=== PATIENT | male | born 1975 | race Caucasian/White ===

== ENCOUNTER 2019-05-26 23:14 | Observation (INO) ==
[2019-05-27] MEDS ORDERED: BENTYL IM ONE (00:06)
[2019-05-27] MEDS ORDERED: ZOFRAN IV ONE (00:06)
[2019-05-27] MEDS ORDERED: TORADOL IV ONE (00:06)
[2019-05-27] MEDS ORDERED: MAXIPIME 1 GM in NS 50 ML IV ONE (00:07)
[2019-05-27 00:48] LABS: BASO# 0.02 X1000 (0.0-0.2); BASO% 0.2 % (0.0-0.8); EOS# 0.03 X1000 (0.0-0.7); EOS% 0.3 % (0.0-10.0); HEMATOCRIT 42.6 % (42.0-52.0); HEMOGLOBIN 14.4 g/dL (14.0-18.0); IMM GRAN# 0.02 X1000 (0.0-0.04); IMM GRAN% 0.2 % (0.0-0.5); LYMPH% 15.2 % (20.5-51.1); MCH 28.8 PG (27-31); MCHC 33.8 g/dL (33-37); MCV 85.2 FL (81-99); MONO# 0.88 X1000 (0.11-0.59); MONO% 7.9 % (1.7-9.3); MPV 10.9 FL (7.4-10.4); NEUT# 8.55 X1000 (1.4-6.5); NEUT% 76.2 % (42.2-75.2); PLT 168 X1000 (130-400); RDW 13.6 % (11.5-14.5)
[2019-05-27 01:07] LABS: ESTIMATED GFR > 60
[2019-05-27 01:09] LABS: AGAP 12; ALB/GLOB RATIO 1.5; ALBUMIN 4.2 g/dL (3.5-5.0); ALKALINE PHOSPHATASE 57 U/L (32-122); AMYLASE 27 U/L (20-200); BUN 9 mg/dL (8-22); CALCIUM 9.2 mg/dL (8.8-10.2); CHLORIDE 100 mmol/L (98-107); COSMO 271; CREATININE 0.8 mg/dL (0.7-1.2); GLUCOSE 101 mg/dL (70-104); GOT 20 U/L (10-34); GPT 38 U/L (10-44); LIPASE 6 U/L (13-60); POTASSIUM 4.1 mmol/L (3.5-5.1); SODIUM 136 mmol/L (136-145); TCO2 24 mmol/L (25-35); TOTAL BILIRUBIN 3.82 mg/dL (0.20-1.00)
[2019-05-27] MEDS ORDERED: ZOFRAN IV PRN (01:39)
[2019-05-27] MEDS ORDERED: MORPHINE IV PRN (01:39)
[2019-05-27] MEDS ORDERED: TORADOL IV PRN (01:39)
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
[2019-05-27] MEDS ORDERED: TYLENOL PR PRN (01:40)
[2019-05-27] MEDS ORDERED: NS 1,000 ML IV ONE (01:40)
[2019-05-27] MEDS: MAXIPIME 1 GM in NS 50 ML IV SCH ×2 (01:49→13:21)
[2019-05-27] MEDS ORDERED: VERSED ONE (06:09)
[2019-05-27] MEDS ORDERED: FENTANYL ONE (06:09)
[2019-05-27] MEDS ORDERED: XYLOCAINE-MPF 2% ONE (06:09)
[2019-05-27] MEDS ORDERED: ZEMURON ONE (06:09)
[2019-05-27] MEDS ORDERED: DIPRIVAN 1% ONE (06:12)
[2019-05-27] MEDS ORDERED: MARCAINE 0.25% PF/EPI 1:200,000 ONE (06:29)
[2019-05-27] MEDS ORDERED: LR 1,000 ML ONE (06:29)
--- NOTE | 2019-05-27 06:30 | HISTORY AND PHYSICAL ---
HISTORY: Mr. Myles Echols is a 44-year-old inmate who for at least 2 days has been experiencing abdominal pain localizing to his right lower quadrant. He was brought to the emergency department during the night, and part of his evaluation was a CT scan of his abdomen and pelvis which suggested acute appendicitis as did his exam. He was admitted under my service for further care. PAST MEDICAL HISTORY: Anxiety and depression. Psychiatric problems: Suicide attempt. PAST SURGICAL HISTORY: Previous surgery of orthopedic surgery on one of his extremities. SOCIAL HISTORY: He is incarcerated and smokes cigarettes. He has a history of substance abuse. REVIEW OF SYSTEMS: He does have elevated total bilirubin, but he does not know of any diagnosis as a cause for this. Otherwise, he states that he is healthy. REVIEW OF SYSTEMS: A 14-point review of systems was performed. FAMILY HISTORY: Family history was reviewed with the patient and was noncontributory. PHYSICAL EXAMINATION: On exam, his temperature is 99.4 degrees, pulse rate 96, blood pressure 99/63, and O2 saturation 100%. GENERAL: Mr. Echols is a healthy appearing middle aged white male of good weight. He is 5 feet 11 inches and weighs 185 pounds. He rates his pain 10/10 right lower quadrant of abdomen. HEENT: It is hard to tell whether he had jaundice. He had no oral lesions. LYMPHATIC: No cervical or supraclavicular lymphadenopathy. HEART: Regular rate. LUNGS: Clear to auscultation and percussion bilaterally. He had no shortness of breath. ABDOMEN: Soft. It is tender in the right lower quadrant. It does not appear that he has had any previous abdominal surgery. There is no evidence of hernia. He had right-sided costovertebral tenderness. PELVIC: Rectal exam was not performed. EXTREMITIES: He does have palpable peripheral pulses. No peripheral edema. NEUROLOGICAL: He is alert and oriented x3 and appropriate. LABORATORY AND DIAGNOSTIC: His white blood cell count is 11. CT scan suggests acute appendicitis. Electrolytes are within normal limits. BUN is 9 and creatinine 0.8. His total bilirubin is 3.8, but the rest of his liver function tests are within normal limits. PLAN: Laparoscopic, possible open appendectomy today. I have discussed this procedure in detail with him at the bedside in [address] [place] [id number] specifically discussing risks which include bleeding, infection, injury to intra-abdominal contents for trocar placement, removal of normal appendix, conversion of laparoscopic to open appendectomy, leakage from the appendiceal stump requiring reoperation for infection, possible ruptured appendix requiring intra-abdominal drains and prolonged hospitalization. He understands the need for surgery and its risks, and he wants to proceed. cc: Liv Narayanan MD
[2019-05-27] MEDS ORDERED: REGLAN ONE (06:36)
[2019-05-27] MEDS ORDERED: PEPCID ONE (06:39)
[2019-05-27] MEDS ORDERED: ZOFRAN ONE (06:51)
[2019-05-27] MEDS ORDERED: DECADRON ONE (06:51)
[2019-05-27] MEDS ORDERED: ROBINUL ONE ×2 (07:07→07:27)
[2019-05-27] MEDS ORDERED: NEOSTIGMINE ONE (07:07)
--- NOTE | 2019-05-27 07:10 | Diag Imaging Result Doc PS360 ---
EXAM: CT ABD/PELVIS W/IV CONT ONLY 05/27/2019 HISTORY: RLQ pain, r/o APPT TECHNIQUE: This exam was performed using automated exposure control, adjustment of mA or kV according to patient size, and/or use of iterative reconstruction technique. COMMENT: There is a calcified granuloma present in the right lower lobe. There is minimal dependent atelectasis. There are no previous studies. The spleen and adrenal glands are not enlarged. The kidneys are without evidence of hydronephrosis or mass. There are some cortical cysts in the kidneys bilaterally. The liver is unremarkable. There are no apparent gallstones. There are some prominent nodes in the stephen hepatis and gastrohepatic ligament with some celiac nodes measuring up to 16 mm in size. There are small periaortic nodes. There are prominent ileocolic mesenteric nodes. There is fluid in the right colon. The small bowel is not distended. There are inflammatory changes in the pericecal region and there is dilatation of the appendix which is filled with fluid to over 13 mm. There is periappendiceal fluid but no discrete abscess is identified. Pelvis: The urinary bladder is not distended. There is no evidence of free fluid. There is a bone island in the proximal left femur. There are degenerative disc changes in the lumbar spine and there is chronic spondylolysis at L5. IMPRESSION: Acute appendicitis. Electronically signed by Kaz Jara 05/27/2019 7:08 AM
[2019-05-27] MEDS ORDERED: D5 1/2 NS + KCL 20 MEQ 1,000 ML ONE (07:42)
[2019-05-27] MEDS ORDERED: DEMEROL ONE (07:44)
[2019-05-27] MEDS ORDERED: NORCO-10 PO PRN (08:02)
[2019-05-27] MEDS ORDERED: PHENERGAN IV PRN (08:03)
--- NOTE | 2019-05-27 08:05 | OPERATIVE NOTE ---
PROCEDURE DATE: 05/27/2019 PREOPERATIVE DIAGNOSIS: Acute appendicitis. POSTOPERATIVE DIAGNOSIS: Acute appendicitis without rupture. PRINCIPAL PROCEDURE: Laparoscopic appendectomy. SURGEON: Liv Narayanan MD. ANESTHESIA: General in addition to local anesthetic. ESTIMATED BLOOD LOSS: 25 mL. DRAINS: None. INDICATIONS: Mr. Myles Echols is a 44-year-old white male inmate, who had a several-day history of abdominal pain localizing to his right lower quadrant. During the night, he presented to our emergency department and a CT scan was part of his evaluation. The CT scan of the abdomen suggested acute appendicitis, as did his exam. He was admitted to my service and appendectomy was recommended. FINDINGS: His appendix was acutely inflamed and becoming gangrenous near the base. I was able to come across the base of the appendix where it was still viable with the stapler. We felt we removed the appendix safely. No other intra-abdominal pathology was noted. DESCRIPTION OF PROCEDURE: The patient was brought to the operating room, placed supine, received general anesthesia, and was intubated. He was already on IV antibiotics. We placed a Howell catheter tube. His abdomen was prepped and draped within a sterile field. We used local anesthetic at our incision sites. I began the procedure by making a small incision below the umbilicus within the midline using a 15 blade scalpel. Veress needle was introduced through this incision into the abdomen. Pneumoperitoneum was established. The Veress needle was removed and I placed an 11 mm trocar through this incision into the abdomen. The camera was placed through this port, and the abdomen was explored for injury; there was none. I placed 2 other trocars under direct vision of the camera. I placed a 12 mm step trocar suprapubic area within the midline, and I placed a 5 mm trocar in the right lower quadrant of the abdomen. The camera was at the umbilical port. I used a grasper and dissector at the lower ports. We identified the appendix and carefully mobilized it bluntly. The appendix was along the right paracolic gutter. We mobilized it up into our field. I came across the base of the appendix below where it was becoming gangrenous at the junction with the cecum with a 45 mm in length gold load [facility]-[place] stapler. I used a reload of the stapler to come across the appendiceal mesentery, and then I used an endobag to remove the appendix through my 12 mm port site. I placed this port back intra- abdominally, and the area of operation was thoroughly inspected, irrigated, and the irrigation was removed with suction. There was no evidence of bleeding. We were happy with the appendiceal stump. No drains were left. All trocars removed under direct vision of the camera. The pneumoperitoneum was allowed to dissipate. I used [id number] 2-0 Vicryl stitches to reapproximate the fascia at my midline trocar sites. All skin was closed with 4-0 Monocryl subcuticular stitches. Steri-Strips were applied. He tolerated the procedure well with plans for him to go the recovery room and then be readmitted to the floor. cc: Liv Narayanan MD
[2019-05-27] MEDS: MORPHINE ONE ×3 (08:14→08:20)
[2019-05-27] MEDS ORDERED: SODIUM CHLORIDE 0.9% INJ PRN (08:15)
[2019-05-27] MEDS ORDERED: NORCO-10 ONE (08:31)
[2019-05-27] MEDS: MOTRIN PO SCH ×3 (09:15→21:33)
[2019-05-27] MEDS: TYLENOL PO SCH ×2 (09:15→13:22)
[2019-05-27 15:00] LABS: URINE SOURCE CLEAN CATCH
[2019-05-27 15:08] LABS: BILIRUBIN URINE NEGATIVE (NEGATIVE); BLOOD URINE NEGATIVE (NEGATIVE); COLOR YELLOW; GLUCOSE URINE NEGATIVE (NEGATIVE); KETONE URINE 20 mg/dL (NEGATIVE); LEUKOCYTES URINE NEGATIVE (NEGATIVE); NITRITE URINE NEGATIVE (NEGATIVE); PH URINE 7.5; PROTEIN URINE 30 mg/dL (NEGATIVE); TURBIDITY URINE CLEAR (CLEAR); UROBILINOGEN URINE NORMAL (NORMAL)
[2019-05-27 15:09] LABS: UR EPITHELIAL CELLS <10 /HPF (<10); URINE BACTERIA NEGATIVE /HPF; URINE RBC <10 /HPF (<10); URINE WBC <10 /HPF (<10)
[2019-05-27 15:39] LABS: SP GRAVITY URINE 1.005
[2019-05-27] MEDS: NORCO-10 PO PRN (17:24)
[2019-05-27] MEDS ORDERED: TYLENOL PO SCH (18:00)
[2019-05-27] MEDS: PERIDEX MT SCH (21:33)
[2019-05-27] MEDS: D5 1/2 NS + KCL 20 MEQ 1,000 ML IV SCH (21:40)
[2019-05-27] MEDS ORDERED: NICODERM PATCH TD ONE (22:19)
[2019-05-28] MEDS: MAXIPIME 1 GM in NS 50 ML IV SCH ×2 (01:48→13:14)
[2019-05-28] MEDS: NORCO-10 PO PRN ×2 (09:00→14:40)
[2019-05-28] MEDS ORDERED: NICODERM PATCH TD SCH (09:00)
[2019-05-28] MEDS: MOTRIN PO SCH ×2 (10:10→14:46)
[2019-05-28] MEDS: PERIDEX MT SCH (10:10)
[2019-05-28] MEDS: D5 1/2 NS + KCL 20 MEQ 1,000 ML IV SCH ×2 (11:07→15:45)
[2019-05-28 11:50] VITALS: BP 101/56
--- NOTE | 2019-05-28 17:10 | GENERAL SURGERY PROGRESS NOTE ---
DATE: 05/28/2019 SUBJECTIVE: Feels well. No fevers, no tachycardia overnight. Abdomen is soft. Incisions are intact. He is voiding. LABORATORY DATA: No new labs this morning. ASSESSMENT/PLAN: 44-year-old gentleman status post laparoscopic appendectomy by Dr. Narayanan. We will plan for him to go back to his nursing home today. He will follow up with Dr. Narayanan in a week. I have given postoperative instructions. cc: MD Liv Sun MD
== END 2019-05-28 15:00 | disposition other institution (70) ==
LOC: ED 23:14 → 4N 23:14
PROVIDERS: ADMIT Surgery; ATTEND Surgery